=== PATIENT | female | born 1970 | race African-American/Black ===

== ENCOUNTER 2021-02-22 15:04 | Outpatient (CLI) | payer BC ==
[2021-02-22 20:40] LABS: BHCG - Serum Negative (NEGATIVE); Pregs Control Background? CLEAR/WHITE (CLR/WHITE); Pregs Control Bar Appear? YES (CONTROL BAR)
[2021-02-23 19:11] LABS: SARS-CoV-2 PCR by NAA Not Detected (NotDetected)
== END 2021-02-22 15:05 | disposition home or self-care (01) ==
LOC: CSHLAB 15:04
PROVIDERS: ATTEND Otolaryngology Otolaryngic Allergy
DX: Z01.818 Encounter for other preprocedural examination (principal); Z20.822 Contact with and (suspected) exposure to COVID-19; E21.3 Hyperparathyroidism, unspecified; E04.1 Nontoxic single thyroid nodule
CPT/HCPCS: 84703; 85014; 87635; 93005; 93010; U0003; U0005

== ENCOUNTER 2021-02-27 05:52 | Observation (INO) | payer BC ==
[2021-02-24 09:18] VITALS: BMI 39.5
[2021-02-27] MEDS ORDERED: Lidocaine 1% MPF 2 ML VIAL ONE (06:27)
[2021-02-27] MEDS ORDERED: PROPOFOL 20 ML ONE ×2 (06:42→07:47)
[2021-02-27] MEDS ORDERED: Fentanyl 250 MCG/5 ML VIAL ONE (06:42)
[2021-02-27] MEDS ORDERED: Ondansetron PF 4 MG/2 ML Vial ONE (06:43)
[2021-02-27] MEDS ORDERED: Midazolam HCl 2 mg/2 ml Vial ONE ×2 (06:43→06:56)
[2021-02-27] MEDS ORDERED: Dexamethasone 20 MG/5 ML VIAL ONE (06:43)
[2021-02-27] MEDS ORDERED: Rocuronium Bromide 10 MG/ML (10ML VIAL) ONE (06:43)
[2021-02-27] MEDS ORDERED: Scopolamine 1.5 mg/72 hour Patch ONE (06:56)
[2021-02-27] MEDS ORDERED: Lidocaine 1% w/Epinephrine 1:100K 20 ML VIAL ONE (06:57)
[2021-02-27] MEDS ORDERED: CEFAZOLIN 1 GM VIAL ONE (07:17)
[2021-02-27] MEDS ORDERED: ePHEDrine 50 MG/ML VIAL ONE (07:49)
[2021-02-27] MEDS ORDERED: HYDROcodone/Acetaminophen 5/325 mg Tablet PO PRN ×2 (09:12)
[2021-02-27] MEDS ORDERED: Calcium Carbonate 600 MG TAB PO SCH (09:45)
[2021-02-27] MEDS ORDERED: Lisinopril 20 MG TAB PO SCH (09:45)
[2021-02-27] MEDS ORDERED: Amlodipine 10 MG TAB PO SCH (09:45)
[2021-02-27] MEDS ORDERED: Cholecalciferol 1,000 UNITS (25 MCG) TAB PO SCH (09:45)
[2021-02-27] MEDS ORDERED: Ondansetron ODT 4 MG TAB PO PRN (12:45)
[2021-02-27] MEDS: Calcium Carbonate 600 MG TAB PO SCH ×2 (14:58→20:07)
[2021-02-28 04:29] VITALS: TEMP 98.1
[2021-02-28] MEDS ORDERED: Ferrous Sulfate 325 MG TAB PO SCH (08:00)
[2021-02-28 08:47] VITALS: BP 122/78
[2021-02-28] MEDS: Calcium Carbonate 600 MG TAB PO SCH (08:47)
[2021-02-28] MEDS ORDERED: Amlodipine 10 MG TAB PO SCH (09:00)
[2021-02-28] MEDS ORDERED: Lisinopril 20 MG TAB PO SCH (09:00)
[2021-02-28] MEDS ORDERED: Cholecalciferol 1,000 UNITS (25 MCG) TAB PO SCH (09:00)
== END 2021-02-28 11:38 | disposition home or self-care (01) ==
LOC: CSHSDC 05:52 → CSHTELE 08:02
PROVIDERS: ADMIT Otolaryngology Otolaryngic Allergy; ATTEND Otolaryngology Otolaryngic Allergy
PROC: 0GTK0ZZ Resection of Thyroid Gland, Open Approach (ICD-10-PCS; principal; 2021-02-27)
PROC: 0GBJ0ZZ Excision of Thyroid Gland Isthmus, Open Approach (ICD-10-PCS; 2021-02-27)
DX: E04.2 Nontoxic multinodular goiter (principal); E21.3 Hyperparathyroidism, unspecified; Z79.899 Other long term (current) drug therapy; I10 Essential (primary) hypertension
CPT/HCPCS: 36415; 82310; 83970; 88307; G0378; J0690; J1100; J2250; J2405; J2704; J3010; J3490